=== PATIENT | male | born 1930 | race Caucasian/White ===

== ENCOUNTER 2016-03-23 10:57 | Inpatient (IN) | payer MEDICARE, OTHER ==
[~2016-03-23] VITALS: Ht 188 cm; Wt 89.4 kg
[2016-03-23] MEDS ORDERED: Furosemide 40 MG/4 ML VIAL ONE (14:52)
[2016-03-23 17:25] VITALS: BP_SYST 176; RESP 20; TEMP 98.9
[2016-03-23 17:26] VITALS: Ht 188 cm; Wt 89.4 kg
[2016-03-23 17:42] VITALS: RESP 20
[2016-03-23] MEDS: CEFTRIAXONE 1 GM in SODIUM CHLORIDE 0.9% 50 ML IV SCH (19:16)
[2016-03-23 19:28] VITALS: BP_SYST 159; RESP 26; TEMP 98.3
[2016-03-23 19:30] VITALS: RESP 24
[2016-03-23] MEDS: NEB-BROVANA 15 MCG/2 ML INH SCH (19:30)
[2016-03-23] MEDS: DUONEB INH SCH ×2 (19:30→22:47)
[2016-03-23] MEDS ORDERED: OXYCODONE 15 MG PO SCH (20:00)
[2016-03-23] MEDS: AZITHROMYCIN 500 MG in SODIUM CHLORIDE 0.9% 250 ML IV SCH (20:54)
[2016-03-23] MEDS: METHYLPRED SOD SUCC 40 MG VIAL IV SCH (20:55)
[2016-03-23] MEDS: Atorvastatin 10 MG TAB PO SCH (20:55)
[2016-03-23] MEDS: BUPROPION HCL 100 MG TAB PO SCH (20:55)
[2016-03-23] MEDS: NITROGLYCERIN 2% OINT 1 INCH PKT TOPICAL SCH (20:55)
[2016-03-23] MEDS: ASPIRIN 81 MG CHEW TAB PO SCH (20:55)
[2016-03-23] MEDS: APIXABAN 5 MG TAB PO SCH (20:55)
[2016-03-23] MEDS: CHOLECALCIFEROL 1,000 UNITS TAB PO SCH (20:55)
[2016-03-23] MEDS: METOPROLOL XL 25 MG TAB PO SCH (20:55)
[2016-03-23] MEDS ORDERED: OXYCODONE 10 MG PO SCH (21:00)
[2016-03-23] MEDS ORDERED: MISSING DOSE XX ONE (21:05)
[2016-03-23 22:45] VITALS: BP_SYST 145; RESP 20; TEMP 98.3
[2016-03-24] MEDS: KCL CR 20 MEQ TAB PO SCH ×4 (02:01→21:03)
[2016-03-24] MEDS: METHYLPRED SOD SUCC 40 MG VIAL IV SCH ×4 (02:02→18:33)
[2016-03-24] MEDS: Furosemide 40 MG/4 ML VIAL IV SCH ×3 (02:02→16:41)
[2016-03-24] MEDS: NITROGLYCERIN 2% OINT 1 INCH PKT TOPICAL SCH ×5 (02:02→16:41)
[2016-03-24 03:45] VITALS: BP_SYST 167; RESP 26; TEMP 97.8
[2016-03-24] MEDS: NEB-BROVANA 15 MCG/2 ML INH SCH ×2 (07:00→19:24)
[2016-03-24] MEDS: DUONEB INH SCH ×4 (07:00→23:02)
[2016-03-24 07:26] VITALS: BP_SYST 182; RESP 24; TEMP 97.6
[2016-03-24] MEDS ORDERED: MISSING DOSE XX ONE ×3 (08:20→16:15)
[2016-03-24] MEDS ORDERED: KCL CR 20 MEQ TAB PO STA (08:31)
[2016-03-24] MEDS ORDERED: Furosemide 40 MG/4 ML VIAL IV ONE (08:35)
[2016-03-24] MEDS ORDERED: OXYCODONE 20 MG PO SCH (09:00)
[2016-03-24] MEDS ORDERED: PHARMACY TO DOSE VANCOMYCIN IV SCH (09:55)
[2016-03-24] MEDS: APIXABAN 5 MG TAB PO SCH ×2 (10:12→21:03)
[2016-03-24] MEDS: ASPIRIN 81 MG CHEW TAB PO SCH (10:13)
[2016-03-24] MEDS: METOPROLOL XL 25 MG TAB PO SCH ×2 (10:13→21:02)
[2016-03-24] MEDS: CHOLECALCIFEROL 1,000 UNITS TAB PO SCH (10:13)
[2016-03-24] MEDS: BUPROPION HCL 100 MG TAB PO SCH (10:14)
[2016-03-24] MEDS: CEFTRIAXONE 1 GM in SODIUM CHLORIDE 0.9% 50 ML IV SCH (10:41)
[2016-03-24] MEDS ORDERED: VANCOMYCIN 1,750 MG in SODIUM CHLORIDE 0.9% 500 ML IV ONE (11:00)
[2016-03-24] MEDS: AZITHROMYCIN 500 MG in SODIUM CHLORIDE 0.9% 250 ML IV SCH (11:22)
[2016-03-24 11:38] VITALS: BP_SYST 156; RESP 36; TEMP 97.6
[2016-03-24 15:54] VITALS: BP_SYST 175; RESP 20; TEMP 97.4
[2016-03-24 19:18] VITALS: BP_SYST 148; RESP 20; TEMP 98.8
[2016-03-24] MEDS: NEB-BUDESONIDE 0.5 MG INH SCH (19:24)
[2016-03-24] MEDS: OSELTAMIVIR 75 MG CAP PO SCH (21:02)
[2016-03-24] MEDS: Atorvastatin 10 MG TAB PO SCH (21:02)
[2016-03-24] MEDS: TEMAZEPAM 7.5 MG CAP PO PRN (21:06)
[2016-03-24 22:44] VITALS: BP_SYST 167; RESP 20; TEMP 98.4
[2016-03-25] MEDS: NITROGLYCERIN 2% OINT 1 INCH PKT TOPICAL SCH ×4 (00:24→22:58)
[2016-03-25] MEDS: VANCOMYCIN 1,500 MG in SODIUM CHLORIDE 0.9% 250 ML IV SCH ×3 (00:24→22:58)
[2016-03-25] MEDS: METHYLPRED SOD SUCC 40 MG VIAL IV SCH ×5 (00:25→22:58)
[2016-03-25] MEDS: Furosemide 40 MG/4 ML VIAL IV SCH ×4 (00:25→22:57)
[2016-03-25] MEDS: DUONEB INH SCH ×6 (02:30→22:45)
[2016-03-25 03:03] VITALS: BP_SYST 158; RESP 18; TEMP 98.2
[2016-03-25] MEDS: NEB-BUDESONIDE 0.5 MG INH SCH ×2 (06:36→18:54)
[2016-03-25] MEDS: NEB-BROVANA 15 MCG/2 ML INH SCH ×2 (06:36→18:54)
[2016-03-25 07:38] VITALS: BP_SYST 158; RESP 22; TEMP 97.2
[2016-03-25] MEDS ORDERED: KCL 20 MEQ PACK PO ONE (08:45)
[2016-03-25] MEDS: CEFTRIAXONE 1 GM in SODIUM CHLORIDE 0.9% 50 ML IV SCH (09:02)
[2016-03-25] MEDS: AZITHROMYCIN 500 MG in SODIUM CHLORIDE 0.9% 250 ML IV SCH (09:02)
[2016-03-25] MEDS: OSELTAMIVIR 75 MG CAP PO SCH (09:03)
[2016-03-25] MEDS: METOPROLOL XL 25 MG TAB PO SCH ×2 (09:03→21:00)
[2016-03-25] MEDS: APIXABAN 5 MG TAB PO SCH ×2 (09:03→21:00)
[2016-03-25] MEDS: ASPIRIN 81 MG CHEW TAB PO SCH (09:03)
[2016-03-25] MEDS: KCL CR 20 MEQ TAB PO SCH ×3 (09:03→21:00)
[2016-03-25] MEDS ORDERED: MISSING DOSE XX ONE ×2 (09:10→16:45)
[2016-03-25] MEDS: SPIRONOLACTONE 25 MG TAB PO SCH (11:00)
[2016-03-25 11:30] VITALS: BP_SYST 142; RESP 20; TEMP 97.3
[2016-03-25 15:15] VITALS: BP_SYST 143; RESP 20; TEMP 98.1
[2016-03-25 19:09] VITALS: BP_SYST 130; RESP 18; TEMP 98.1
[2016-03-25] MEDS: Atorvastatin 10 MG TAB PO SCH (20:59)
[2016-03-25] MEDS: TEMAZEPAM 7.5 MG CAP PO PRN (22:58)
[2016-03-25 23:00] VITALS: BP_SYST 132; RESP 16; TEMP 97.9
[2016-03-26] VITALS (7 sets, daily range): BP systolic 103–167; RESP 16–20; TEMP 97.4–98.4
[2016-03-26] MEDS: DUONEB INH SCH ×6 (02:37→22:26)
[2016-03-26] MEDS: METHYLPRED SOD SUCC 40 MG VIAL IV SCH ×2 (05:56→20:28)
[2016-03-26] MEDS: NEB-BROVANA 15 MCG/2 ML INH SCH ×2 (06:46→18:27)
[2016-03-26] MEDS: NEB-BUDESONIDE 0.5 MG INH SCH ×2 (06:46→18:27)
[2016-03-26] MEDS ORDERED: KCL 20 MEQ PACK PO ONE (07:25)
[2016-03-26] MEDS ORDERED: MISSING DOSE XX ONE ×2 (08:10→17:00)
[2016-03-26] MEDS: CEFTRIAXONE 1 GM in SODIUM CHLORIDE 0.9% 50 ML IV SCH (09:08)
[2016-03-26] MEDS: AZITHROMYCIN 500 MG in SODIUM CHLORIDE 0.9% 250 ML IV SCH (09:08)
[2016-03-26] MEDS: Furosemide 40 MG/4 ML VIAL IV SCH (09:09)
[2016-03-26] MEDS: KCL CR 20 MEQ TAB PO SCH ×3 (09:10→20:29)
[2016-03-26] MEDS: NITROGLYCERIN 2% OINT 1 INCH PKT TOPICAL SCH ×2 (09:10→17:34)
[2016-03-26] MEDS: ASPIRIN 81 MG CHEW TAB PO SCH (09:10)
[2016-03-26] MEDS: METOPROLOL XL 25 MG TAB PO SCH ×2 (09:10→20:28)
[2016-03-26] MEDS: SPIRONOLACTONE 25 MG TAB PO SCH (09:10)
[2016-03-26] MEDS: APIXABAN 5 MG TAB PO SCH ×2 (09:11→20:28)
[2016-03-26] MEDS: VANCOMYCIN 1,500 MG in SODIUM CHLORIDE 0.9% 250 ML IV SCH (12:00)
[2016-03-26] MEDS: VANCOMYCIN 1,250 MG in SODIUM CHLORIDE 0.9% 250 ML IV SCH (13:29)
[2016-03-26] MEDS: TEMAZEPAM 7.5 MG CAP PO PRN (20:28)
[2016-03-26] MEDS: Atorvastatin 10 MG TAB PO SCH (20:28)
[2016-03-26] MEDS: ACETAMINOPHEN 325 MG TAB PO PRN (20:29)
[2016-03-27] VITALS (9 sets, daily range): BP systolic 110–166; RESP 18–20; TEMP 97.4–98.7
[2016-03-27] MEDS: NITROGLYCERIN 2% OINT 1 INCH PKT TOPICAL SCH ×3 (00:07→17:53)
[2016-03-27] MEDS: VANCOMYCIN 1,250 MG in SODIUM CHLORIDE 0.9% 250 ML IV SCH ×2 (00:08→13:16)
[2016-03-27] MEDS: DUONEB INH SCH ×6 (02:18→23:09)
[2016-03-27] MEDS ORDERED: SALINE FLUSH 10 ML FLUSH PRN (06:00)
[2016-03-27] MEDS: SODIUM CHLORIDE 0.9% FLUSH BAG 500 ML IV SCH (06:00)
[2016-03-27] MEDS: NEB-BUDESONIDE 0.5 MG INH SCH ×2 (06:03→19:31)
[2016-03-27] MEDS: NEB-BROVANA 15 MCG/2 ML INH SCH ×2 (06:03→19:30)
[2016-03-27] MEDS: METHYLPRED SOD SUCC 40 MG VIAL IV SCH ×3 (08:00→20:47)
[2016-03-27] MEDS ORDERED: Furosemide 20 MG/2 ML VIAL IV ONE (09:15)
[2016-03-27] MEDS: APIXABAN 5 MG TAB PO SCH ×2 (09:37→20:47)
[2016-03-27] MEDS: SALINE FLUSH 10 ML FLUSH SCH ×2 (09:37→20:47)
[2016-03-27] MEDS: KCL CR 20 MEQ TAB PO SCH (09:37)
[2016-03-27] MEDS: CEFTRIAXONE 1 GM in SODIUM CHLORIDE 0.9% 50 ML IV SCH (09:37)
[2016-03-27] MEDS: METOPROLOL XL 25 MG TAB PO SCH ×2 (09:38→20:47)
[2016-03-27] MEDS: ASPIRIN 81 MG CHEW TAB PO SCH (09:38)
[2016-03-27] MEDS: SPIRONOLACTONE 25 MG TAB PO SCH (09:38)
[2016-03-27] MEDS: NYSTATIN 500,000 UNITS/5 ML SUSP SWISH.SWAL SCH ×4 (10:37→20:47)
[2016-03-27] MEDS: Furosemide 20 MG TAB PO SCH (12:17)
[2016-03-27] MEDS: Atorvastatin 10 MG TAB PO SCH (20:47)
[2016-03-27] MEDS ORDERED: MISSING DOSE XX ONE (21:00)
[2016-03-27] MEDS: TEMAZEPAM 7.5 MG CAP PO PRN (22:12)
[2016-03-28] MEDS: NITROGLYCERIN 2% OINT 1 INCH PKT TOPICAL SCH ×2 (00:11→08:00)
[2016-03-28 00:12] VITALS: BP_SYST 152
[2016-03-28] MEDS: VANCOMYCIN 1,250 MG in SODIUM CHLORIDE 0.9% 250 ML IV SCH ×2 (00:12→12:33)
[2016-03-28] MEDS: SODIUM CHLORIDE 0.9% FLUSH BAG 500 ML IV SCH (00:12)
[2016-03-28] MEDS: DUONEB INH SCH ×6 (02:25→23:14)
[2016-03-28] MEDS: NEB-BROVANA 15 MCG/2 ML INH SCH ×2 (06:19→19:30)
[2016-03-28] MEDS: NEB-BUDESONIDE 0.5 MG INH SCH ×2 (06:20→19:30)
[2016-03-28 07:49] VITALS: BP_SYST 164; RESP 20; TEMP 98.1
[2016-03-28] MEDS: METHYLPRED SOD SUCC 40 MG VIAL IV SCH ×2 (09:00→20:13)
[2016-03-28] MEDS: NYSTATIN 500,000 UNITS/5 ML SUSP SWISH.SWAL SCH ×4 (09:00→20:14)
[2016-03-28] MEDS: NITROGLYCERIN 0.4 MG/HR PATCH TRANSDERM SCH (09:00)
[2016-03-28] MEDS: METOPROLOL XL 50 MG TAB PO SCH ×2 (09:00→20:14)
[2016-03-28] MEDS: Furosemide 20 MG TAB PO SCH (09:01)
[2016-03-28] MEDS: SPIRONOLACTONE 25 MG TAB PO SCH (09:01)
[2016-03-28] MEDS: APIXABAN 5 MG TAB PO SCH ×2 (09:01→20:12)
[2016-03-28] MEDS: ASPIRIN 81 MG CHEW TAB PO SCH (09:02)
[2016-03-28] MEDS: SALINE FLUSH 10 ML FLUSH SCH ×2 (09:04→20:13)
[2016-03-28] MEDS: CEFTRIAXONE 1 GM in SODIUM CHLORIDE 0.9% 50 ML IV SCH (09:10)
[2016-03-28] MEDS ORDERED: NEB-NACL 3% 4 ML NEBU INH ONE (10:21)
[2016-03-28] MEDS: NEB-NACL 3% 4 ML NEBU INH SCH ×3 (10:29→23:14)
[2016-03-28 11:14] VITALS: BP_SYST 158; RESP 20; TEMP 97.6
[2016-03-28 15:21] VITALS: BP_SYST 146; RESP 22; TEMP 97.9
[2016-03-28 19:51] VITALS: BP_SYST 171; RESP 22; TEMP 97.2
[2016-03-28] MEDS: Atorvastatin 10 MG TAB PO SCH (20:12)
[2016-03-28] MEDS ORDERED: MISSING DOSE XX ONE (21:25)
[2016-03-28] MEDS: TEMAZEPAM 7.5 MG CAP PO PRN (22:16)
[2016-03-28] MEDS: OXYCODONE/APAP 5/325 TAB PO PRN (22:16)
[2016-03-28 23:34] VITALS: BP_SYST 152; RESP 22; TEMP 97.4
[2016-03-29] VITALS (7 sets, daily range): BP systolic 111–172; RESP 16–22; TEMP 97.4–98.3
[2016-03-29] MEDS: VANCOMYCIN 1,250 MG in SODIUM CHLORIDE 0.9% 250 ML IV SCH ×2 (01:26→15:52)
[2016-03-29] MEDS: DUONEB INH SCH ×6 (02:41→22:52)
[2016-03-29] MEDS: SODIUM CHLORIDE 0.9% FLUSH BAG 500 ML IV SCH (05:52)
[2016-03-29] MEDS: NEB-BROVANA 15 MCG/2 ML INH SCH ×2 (06:25→18:18)
[2016-03-29] MEDS: NEB-BUDESONIDE 0.5 MG INH SCH ×2 (06:25→18:18)
[2016-03-29] MEDS: NEB-NACL 3% 4 ML NEBU INH SCH ×4 (06:25→22:52)
[2016-03-29] MEDS: Furosemide 20 MG TAB PO SCH (08:17)
[2016-03-29] MEDS ORDERED: Furosemide 40 MG/4 ML VIAL IV ONE (08:20)
[2016-03-29] MEDS: SALINE FLUSH 10 ML FLUSH SCH ×2 (08:54→20:37)
[2016-03-29] MEDS: METHYLPRED SOD SUCC 40 MG VIAL IV SCH ×2 (08:55→20:37)
[2016-03-29] MEDS ORDERED: MISSING DOSE XX ONE ×5 (12:25→20:10)
[2016-03-29] MEDS: amLODIPine 2.5 MG TAB PO SCH ×2 (12:32→20:38)
[2016-03-29] MEDS: NITROGLYCERIN 0.4 MG/HR PATCH TRANSDERM SCH (12:34)
[2016-03-29] MEDS: ASPIRIN 81 MG CHEW TAB PO SCH (12:35)
[2016-03-29] MEDS: NYSTATIN 500,000 UNITS/5 ML SUSP SWISH.SWAL SCH ×4 (12:35→20:37)
[2016-03-29] MEDS: APIXABAN 5 MG TAB PO SCH ×2 (12:35→20:38)
[2016-03-29] MEDS: SPIRONOLACTONE 25 MG TAB PO SCH (12:36)
[2016-03-29] MEDS: Furosemide 40 MG/4 ML VIAL IV SCH ×2 (12:37→17:17)
[2016-03-29] MEDS: CEFTRIAXONE 1 GM in SODIUM CHLORIDE 0.9% 50 ML IV SCH (13:18)
[2016-03-29] MEDS: Atorvastatin 10 MG TAB PO SCH (20:38)
[2016-03-29] MEDS: TAMSULOSIN 0.4 MG CAP PO SCH (20:38)
[2016-03-30] MEDS: VANCOMYCIN 1,250 MG in SODIUM CHLORIDE 0.9% 250 ML IV SCH (00:28)
[2016-03-30] MEDS: DUONEB INH SCH ×6 (02:33→23:52)
[2016-03-30 03:32] VITALS: BP_SYST 148; RESP 20; TEMP 98
[2016-03-30] MEDS: SODIUM CHLORIDE 0.9% FLUSH BAG 500 ML IV SCH (06:09)
[2016-03-30] MEDS: NEB-BUDESONIDE 0.5 MG INH SCH ×2 (06:25→18:10)
[2016-03-30] MEDS: NEB-BROVANA 15 MCG/2 ML INH SCH ×2 (06:25→18:10)
[2016-03-30] MEDS: NEB-NACL 3% 4 ML NEBU INH SCH ×4 (06:25→23:52)
[2016-03-30 07:38] VITALS: BP_SYST 111; RESP 18; TEMP 98.2
[2016-03-30] MEDS ORDERED: MISSING DOSE XX ONE ×4 (08:20→20:30)
[2016-03-30] MEDS: CEFTRIAXONE 1 GM in SODIUM CHLORIDE 0.9% 50 ML IV SCH (09:07)
[2016-03-30] MEDS: METHYLPRED SOD SUCC 40 MG VIAL IV SCH (09:08)
[2016-03-30] MEDS: SALINE FLUSH 10 ML FLUSH SCH ×2 (09:08→20:49)
[2016-03-30] MEDS: Furosemide 40 MG/4 ML VIAL IV SCH ×2 (09:08→16:03)
[2016-03-30] MEDS: NYSTATIN 500,000 UNITS/5 ML SUSP SWISH.SWAL SCH ×4 (09:11→20:49)
[2016-03-30] MEDS: SPIRONOLACTONE 25 MG TAB PO SCH (09:11)
[2016-03-30] MEDS: APIXABAN 5 MG TAB PO SCH ×2 (09:11→20:49)
[2016-03-30] MEDS: ASPIRIN 81 MG CHEW TAB PO SCH (09:11)
[2016-03-30] MEDS: amLODIPine 2.5 MG TAB PO SCH ×2 (09:11→20:49)
[2016-03-30] MEDS: NITROGLYCERIN 0.4 MG/HR PATCH TRANSDERM SCH (10:47)
[2016-03-30 11:49] VITALS: BP_SYST 94; RESP 18; TEMP 98.3
[2016-03-30] MEDS: ACETAMINOPHEN 325 MG TAB PO PRN (11:55)
[2016-03-30] MEDS ORDERED: KCL CR 10 MEQ CAP PO ONE (17:05)
[2016-03-30 19:40] VITALS: BP_SYST 108; RESP 18; TEMP 97.9
[2016-03-30] MEDS ORDERED: VANCOMYCIN 1,000 MG in SODIUM CHLORIDE 0.9% 250 ML IV SCH (20:00)
[2016-03-30] MEDS: TAMSULOSIN 0.4 MG CAP PO SCH (20:49)
[2016-03-30] MEDS: Atorvastatin 10 MG TAB PO SCH (20:49)
[2016-03-30] MEDS: TEMAZEPAM 7.5 MG CAP PO PRN (20:49)
[2016-03-30 23:27] VITALS: BP_SYST 124; RESP 18; TEMP 97.7
[2016-03-31] VITALS (7 sets, daily range): BP systolic 86–126; RESP 16–20; TEMP 97.2–98
[2016-03-31] MEDS: DUONEB INH SCH ×6 (02:33→22:27)
[2016-03-31] MEDS: MORPHINE 2 MG/ML SYR IV PRN ×3 (03:24→19:53)
[2016-03-31] MEDS: SODIUM CHLORIDE 0.9% FLUSH BAG 500 ML IV SCH (05:52)
[2016-03-31] MEDS: NEB-BROVANA 15 MCG/2 ML INH SCH ×2 (06:21→18:14)
[2016-03-31] MEDS: NEB-NACL 3% 4 ML NEBU INH SCH ×4 (06:21→22:27)
[2016-03-31] MEDS: NEB-BUDESONIDE 0.5 MG INH SCH ×2 (06:21→18:14)
[2016-03-31] MEDS: SALINE FLUSH 10 ML FLUSH SCH ×2 (08:24→19:59)
[2016-03-31] MEDS: amLODIPine 2.5 MG TAB PO SCH ×2 (08:25→20:01)
[2016-03-31] MEDS: ASPIRIN 81 MG CHEW TAB PO SCH (08:25)
[2016-03-31] MEDS: Furosemide 40 MG/4 ML VIAL IV SCH (08:25)
[2016-03-31] MEDS: NITROGLYCERIN 0.4 MG/HR PATCH TRANSDERM SCH (08:25)
[2016-03-31] MEDS: SPIRONOLACTONE 25 MG TAB PO SCH (08:25)
[2016-03-31] MEDS: APIXABAN 5 MG TAB PO SCH ×2 (08:26→20:01)
[2016-03-31] MEDS ORDERED: MISSING DOSE XX ONE (09:10)
[2016-03-31] MEDS ORDERED: ALU/MAG/SIM 30 ML UDC PO PRN (10:10)
[2016-03-31] MEDS: PANTOPRAZOLE 40 MG TAB PO SCH ×2 (11:39→17:17)
[2016-03-31] MEDS: KCL CR 8 MEQ TAB PO SCH ×3 (11:39→20:01)
[2016-03-31] MEDS: NYSTATIN 500,000 UNITS/5 ML SUSP SWISH.SWAL SCH ×4 (11:39→20:01)
[2016-03-31] MEDS: TEMAZEPAM 7.5 MG CAP PO PRN (20:01)
[2016-03-31] MEDS: TAMSULOSIN 0.4 MG CAP PO SCH (20:01)
[2016-03-31] MEDS: Atorvastatin 10 MG TAB PO SCH (20:01)
[2016-03-31] MEDS: OXYCODONE/APAP 5/325 TAB PO PRN (22:57)
[2016-04-01] MEDS: MORPHINE 2 MG/ML SYR IV PRN ×2 (00:01→16:55)
[2016-04-01] MEDS: SODIUM CHLORIDE 0.9% FLUSH BAG 500 ML IV SCH (01:38)
[2016-04-01] MEDS: DUONEB INH SCH ×6 (02:24→22:46)
[2016-04-01] MEDS: OXYCODONE/APAP 5/325 TAB PO PRN (03:10)
[2016-04-01 03:40] VITALS: BP_SYST 109; RESP 18; TEMP 97.4
[2016-04-01] MEDS: PANTOPRAZOLE 40 MG TAB PO SCH ×2 (06:29→16:51)
[2016-04-01] MEDS: NEB-BUDESONIDE 0.5 MG INH SCH ×2 (06:40→18:10)
[2016-04-01] MEDS: NEB-BROVANA 15 MCG/2 ML INH SCH ×2 (06:40→18:10)
[2016-04-01] MEDS: NEB-NACL 3% 4 ML NEBU INH SCH ×4 (06:40→22:46)
[2016-04-01 07:45] VITALS: BP_SYST 118; RESP 16; TEMP 98.2
[2016-04-01] MEDS: SPIRONOLACTONE 25 MG TAB PO SCH (08:37)
[2016-04-01] MEDS: KCL CR 8 MEQ TAB PO SCH ×3 (08:37→21:17)
[2016-04-01] MEDS: amLODIPine 2.5 MG TAB PO SCH ×2 (08:37→21:17)
[2016-04-01] MEDS: APIXABAN 5 MG TAB PO SCH ×2 (08:37→21:15)
[2016-04-01] MEDS: ASPIRIN 81 MG CHEW TAB PO SCH (08:37)
[2016-04-01] MEDS: NYSTATIN 500,000 UNITS/5 ML SUSP SWISH.SWAL SCH ×4 (08:37→21:17)
[2016-04-01] MEDS: Furosemide 40 MG/4 ML VIAL IV SCH (08:38)
[2016-04-01] MEDS: SALINE FLUSH 10 ML FLUSH SCH ×2 (08:38→21:15)
[2016-04-01] MEDS: NITROGLYCERIN 0.4 MG/HR PATCH TRANSDERM SCH (08:39)
[2016-04-01] MEDS: METOPROLOL TART 25 MG TAB PO SCH ×2 (11:42→21:16)
[2016-04-01] MEDS: TRIAMCIN TOPICAL SCH ×2 (11:44→21:17)
[2016-04-01 11:48] VITALS: BP_SYST 98; RESP 16; TEMP 97.3
[2016-04-01] MEDS ORDERED: KCL 20 MEQ/15 ML UDC PO ONE (14:20)
[2016-04-01] MEDS: ACETAMINOPHEN 325 MG TAB PO PRN (14:35)
[2016-04-01 16:13] VITALS: BP_SYST 103; RESP 28; TEMP 97.7
[2016-04-01 20:12] VITALS: BP_SYST 98; RESP 18; TEMP 98
[2016-04-01] MEDS: Atorvastatin 10 MG TAB PO SCH (21:16)
[2016-04-01] MEDS: TAMSULOSIN 0.4 MG CAP PO SCH (21:16)
[2016-04-01 23:59] VITALS: BP_SYST 104; RESP 16; TEMP 98.6
[2016-04-02] MEDS: DUONEB INH SCH ×6 (02:19→23:16)
[2016-04-02 02:58] VITALS: BP_SYST 114; RESP 16; TEMP 97.9
[2016-04-02] MEDS: SODIUM CHLORIDE 0.9% FLUSH BAG 500 ML IV SCH (05:40)
[2016-04-02 07:38] VITALS: BP_SYST 112; RESP 16; TEMP 97.8
[2016-04-02] MEDS: NEB-BROVANA 15 MCG/2 ML INH SCH ×2 (08:12→18:31)
[2016-04-02] MEDS: NEB-NACL 3% 4 ML NEBU INH SCH ×4 (08:12→23:16)
[2016-04-02] MEDS: NEB-BUDESONIDE 0.5 MG INH SCH ×2 (08:12→18:31)
[2016-04-02] MEDS: PANTOPRAZOLE 40 MG TAB PO SCH ×2 (09:24→16:41)
[2016-04-02] MEDS: APIXABAN 5 MG TAB PO SCH ×2 (09:24→21:09)
[2016-04-02] MEDS: NYSTATIN 500,000 UNITS/5 ML SUSP SWISH.SWAL SCH ×4 (09:24→21:09)
[2016-04-02] MEDS: TRIAMCIN TOPICAL SCH ×2 (09:24→21:10)
[2016-04-02] MEDS: ASPIRIN 81 MG CHEW TAB PO SCH (09:24)
[2016-04-02] MEDS: NITROGLYCERIN 0.4 MG/HR PATCH TRANSDERM SCH (09:24)
[2016-04-02] MEDS: KCL CR 8 MEQ TAB PO SCH ×3 (09:24→21:09)
[2016-04-02] MEDS: SPIRONOLACTONE 25 MG TAB PO SCH (09:24)
[2016-04-02] MEDS: METOPROLOL TART 25 MG TAB PO SCH ×2 (09:24→21:09)
[2016-04-02] MEDS: SALINE FLUSH 10 ML FLUSH SCH ×2 (09:26→21:08)
[2016-04-02] MEDS: Furosemide 40 MG/4 ML VIAL IV SCH (09:26)
[2016-04-02 11:12] VITALS: BP_SYST 107; RESP 16; TEMP 98.3
[2016-04-02] MEDS: MORPHINE 2 MG/ML SYR IV PRN ×2 (12:42→21:24)
[2016-04-02 15:15] VITALS: BP_SYST 110; RESP 16; TEMP 98.4
[2016-04-02 17:39] VITALS: BP_SYST 124; RESP 20; TEMP 97.9
[2016-04-02 20:31] VITALS: BP_SYST 109; RESP 18; TEMP 97.8
[2016-04-02] MEDS: TAMSULOSIN 0.4 MG CAP PO SCH (21:08)
[2016-04-02] MEDS: amLODIPine 2.5 MG TAB PO SCH (21:08)
[2016-04-02] MEDS: Atorvastatin 10 MG TAB PO SCH (21:09)
[2016-04-02] MEDS: TEMAZEPAM 7.5 MG CAP PO PRN (22:35)
[2016-04-03] MEDS: DUONEB INH SCH ×6 (02:50→22:30)
[2016-04-03] MEDS: SODIUM CHLORIDE 0.9% FLUSH BAG 500 ML IV SCH (06:00)
[2016-04-03] MEDS: NEB-BUDESONIDE 0.5 MG INH SCH ×2 (06:29→18:35)
[2016-04-03] MEDS: NEB-NACL 3% 4 ML NEBU INH SCH ×4 (06:29→22:30)
[2016-04-03] MEDS: NEB-BROVANA 15 MCG/2 ML INH SCH ×2 (06:29→18:36)
[2016-04-03] MEDS ORDERED: MISSING DOSE XX ONE ×2 (06:35→06:40)
[2016-04-03] MEDS: PANTOPRAZOLE 40 MG TAB PO SCH ×2 (07:03→18:13)
[2016-04-03 07:20] VITALS: BP_SYST 109; RESP 16; TEMP 97.9
[2016-04-03] MEDS: SALINE FLUSH 10 ML FLUSH SCH ×2 (08:00→20:00)
[2016-04-03] MEDS: SPIRONOLACTONE 25 MG TAB PO SCH (09:16)
[2016-04-03] MEDS: APIXABAN 5 MG TAB PO SCH ×2 (09:17→21:36)
[2016-04-03] MEDS: NYSTATIN 500,000 UNITS/5 ML SUSP SWISH.SWAL SCH (09:17)
[2016-04-03] MEDS: METOPROLOL TART 25 MG TAB PO SCH ×2 (09:17→21:37)
[2016-04-03] MEDS: KCL CR 8 MEQ TAB PO SCH ×3 (09:17→21:35)
[2016-04-03] MEDS: Furosemide 40 MG TAB PO SCH (09:17)
[2016-04-03] MEDS: ASPIRIN 81 MG CHEW TAB PO SCH (09:17)
[2016-04-03] MEDS: TRIAMCIN TOPICAL SCH ×2 (09:18→21:37)
[2016-04-03] MEDS: NITROGLYCERIN 0.4 MG/HR PATCH TRANSDERM SCH (09:19)
[2016-04-03] MEDS: OMNIPAQUE 240 MG/ML, 50 ML PO SCH ×2 (10:36→13:51)
[2016-04-03 11:27] VITALS: BP_SYST 96; RESP 16
[2016-04-03 15:43] VITALS: BP_SYST 114; RESP 16; TEMP 97.9
[2016-04-03 20:11] VITALS: BP_SYST 120; RESP 18; TEMP 97.6
[2016-04-03] MEDS: Atorvastatin 10 MG TAB PO SCH (21:36)
[2016-04-03] MEDS: TAMSULOSIN 0.4 MG CAP PO SCH (21:36)
[2016-04-03] MEDS: amLODIPine 2.5 MG TAB PO SCH (21:37)
[2016-04-03 23:51] VITALS: BP_SYST 107; RESP 18; TEMP 98.5
[2016-04-04] MEDS: TEMAZEPAM 7.5 MG CAP PO PRN (00:59)
[2016-04-04] MEDS: DUONEB INH SCH ×3 (02:23→11:21)
[2016-04-04 05:00] VITALS: BP_SYST 103; RESP 18; TEMP 97.5
[2016-04-04] MEDS: SODIUM CHLORIDE 0.9% FLUSH BAG 500 ML IV SCH (06:00)
[2016-04-04] MEDS: PANTOPRAZOLE 40 MG TAB PO SCH (06:29)
[2016-04-04] MEDS: NEB-BROVANA 15 MCG/2 ML INH SCH (06:47)
[2016-04-04] MEDS: NEB-BUDESONIDE 0.5 MG INH SCH (06:47)
[2016-04-04] MEDS: NEB-NACL 3% 4 ML NEBU INH SCH ×2 (06:47→11:21)
[2016-04-04] MEDS: SALINE FLUSH 10 ML FLUSH SCH (07:49)
[2016-04-04 08:12] VITALS: BP_SYST 118; RESP 20; TEMP 97.9
[2016-04-04] MEDS: APIXABAN 5 MG TAB PO SCH (09:40)
[2016-04-04] MEDS: TRIAMCIN TOPICAL SCH (09:40)
[2016-04-04] MEDS: SPIRONOLACTONE 25 MG TAB PO SCH (09:40)
[2016-04-04] MEDS: KCL CR 8 MEQ TAB PO SCH (09:40)
[2016-04-04] MEDS: ASPIRIN 81 MG CHEW TAB PO SCH (09:40)
[2016-04-04] MEDS: Furosemide 40 MG TAB PO SCH (09:40)
[2016-04-04] MEDS: METOPROLOL TART 25 MG TAB PO SCH (09:40)
[2016-04-04] MEDS: NITROGLYCERIN 0.4 MG/HR PATCH TRANSDERM SCH (09:43)
[2016-04-04 10:59] VITALS: BP_SYST 115; RESP 22; TEMP 97.4
[2016-04-04 13:30] VITALS: BP_SYST 115; RESP 22; TEMP 97.4
== END 2016-04-04 14:38 | DRG 291 ==
LOC: ENRESERVTM → ENRESERVDT → ER 10:57 → ENPENDDIS 16:13 → EMR 16:13 → PCU2 17:01 → 4NT 03-27 18:49 → PCU 03-29 09:33 → 4NT 04-02 17:23
PROVIDERS: ADMIT Internal Medicine; ATTEND Internal Medicine
DX: I11.0 Hypertensive heart disease with heart failure (principal); J96.01 Acute respiratory failure with hypoxia; J18.9 Pneumonia, unspecified organism; E87.3 Alkalosis; J44.0 Chronic obstructive pulmonary disease with (acute) lower respiratory infection; Z79.01 Long term (current) use of anticoagulants; I48.2 Chronic atrial fibrillation; J44.1 Chronic obstructive pulmonary disease with (acute) exacerbation; Z98.1 Arthrodesis status; Z95.0 Presence of cardiac pacemaker; Z87.891 Personal history of nicotine dependence; Z79.82 Long term (current) use of aspirin; K21.9 Gastro-esophageal reflux disease without esophagitis; E55.9 Vitamin D deficiency, unspecified; R26.9 Unspecified abnormalities of gait and mobility; R62.7 Adult failure to thrive; I50.33 Acute on chronic diastolic (congestive) heart failure; F41.9 Anxiety disorder, unspecified; F32.9 Major depressive disorder, single episode, unspecified
CPT/HCPCS: 36415; 36600; 71010; 71250; 74176; 80048; 80053; 80202; 82140; 82553; 82803; 82947; 83735; 83880; 84145; 84439; 84443; 84484; 85025; 87081; 87278; 87299; 87804; 93005; 93306; 94640; 94664; 94762; 94799; 96374; 99232; 99233; 99291